=== PATIENT | male | born 1980 ===

== ENCOUNTER 2020-02-03 07:10 | Day surgery (SDC) | payer OTHER | END 2020-02-03 22:09 | disposition home or self-care (01) | LOC: CIR.AMB 07:10 → ADM 10:00 → CIR.AMB 18:15 | PROVIDERS: ATTEND Orthopaedic Surgery Hand Surgery | DX: S52.131A Displaced fracture of neck of right radius, initial encounter for closed fracture (principal); M24.521 Contracture, right elbow ==